=== PATIENT | female | born 1990 | race Caucasian/White ===

== ENCOUNTER 2018-03-25 23:05 | Emergency (ER) | payer SELFPAY ==
[~2018-03-25] VITALS: Ht 170.2 cm; Wt 86.2 kg
[~2018-03-25 23:05] MED LIST: LORazepam Inj 2mg/ml 1ml IV ONE
[2018-03-25 23:10] VITALS: BP 106/68
[2018-03-25] MEDS ORDERED: LORazepam Inj 2mg/ml 1ml ONE (23:52)
[2018-03-26 00:06] LABS: BASOPHILS % (AUTO) 0.5 % (0.0-2.0); EOSINOPHILS % (AUTO) 1.6 % (0.0-3.0); HEMATOCRIT 37.3 % (37.0-47.0); HEMOGLOBIN 12.6 G/DL (12.0-16.0); LYMPHOCYTES % (AUTO) 31.8 % (20.0-45.0); MEAN CORPUSCULAR VOLUME 82 FL (80-99); MONOCYTES % (AUTO) 6.5 % (1.0-10.0); NEUTROPHILS % (AUTO) 59.6 % (45.0-75.0); PLATELET COUNT 271 K/UL (150-450); RED BLOOD COUNT 4.53 M/UL (4.20-5.40); RED CELL DISTRIBUTION WIDTH 11.3 % (11.6-14.8); WHITE BLOOD COUNT 6.7 K/UL (4.8-10.8)
[2018-03-26 00:16] LABS: ANION GAP 9 mmol/L (5-15); BLOOD UREA NITROGEN 10 mg/dL (7-18); CARBON DIOXIDE 29 MMOL/L (21-32); CHLORIDE 102 MMOL/L (98-107); CREATININE 0.7 MG/DL (0.55-1.30); POTASSIUM 3.3 MMOL/L (3.5-5.1); SODIUM 140 MMOL/L (136-145)
[2018-03-26 00:20] LABS: ALANINE AMINOTRANSFERASE 29 U/L (12-78); ALBUMIN 3.7 G/DL (3.4-5.0); ALBUMIN/GLOBULIN RATIO 0.8 (1.0-2.7); ALKALINE PHOSPHATASE 81 U/L (46-116); ASPARTATE AMINO TRANSFERASE 20 U/L (15-37); BILIRUBIN,TOTAL 0.4 MG/DL (0.2-1.0); CREATINE KINASE 183 U/L (26-308)
[2018-03-26 01:00] VITALS: BP 108/70
[2018-03-26 02:37] LABS: APPEARANCE,URINE CLEAR; BILIRUBIN, URINE NEGATIVE (NEGATIVE); COLOR,URINE PALE YELLOW; GLUCOSE, URINE (UA) NEGATIVE (NEGATIVE); KETONES,URINE 3+ (NEGATIVE); LEUKOCYTE ESTERASE ,URINE 2+ (NEGATIVE); NITRITE,URINE NEGATIVE (NEGATIVE); PH,URINE 5 (4.5-8.0); PROTEIN,URINE NEGATIVE (NEGATIVE); UROBILINOGEN,URINE NORMAL MG/DL (0.0-1.0)
[2018-03-26 02:57] VITALS: BP 114/72
--- NOTE | 2018-03-26 03:51 | Emergency Room Report ---
History of Present Illness General Chief Complaint: Medication Refill Source: Patient, EMS Present Illness HPI Patient is brought in by EMS stating that she's off of her medications for bipolar disorder and needs medication immediately. She will not answer questions about suicidality. There is some question about whether she's been taking drugs recently. She refuses to answer questions. Allergies: Coded Allergies: No Known Allergies (Unverified , 03/25/18) Patient History Limited by: other - Patient refuses to answer Past Medical History: see triage record Social History: Reports: smoking, drug use Social History Narrative apparently on the streets Last Menstrual Period: unk Now: No Reviewed Nursing Documentation: PMH: Agreed; PSxH: Agreed Nursing Documentation-PMH Past Medical History: No History, Except For Review of Systems All Other Systems: limited Physical Exam Vital Signs Date Time Temp Pulse Resp B/P (MAP) Pulse Ox O2 Delivery O2 Flow Rate FiO2 03/25/18 22:53 97.1 83 16 104/61 100 Room Air 97.2 Sp02 EP Interpretation: reviewed, normal General Appearance: no apparent distress, other - dishevelled Head: normocephalic Eyes: bilateral eye PERRL, bilateral eye Scleral Injection ENT: moist mucus membranes Neck: supple Respiratory: lungs clear, normal breath sounds Cardiovascular #1: regular rate, rhythm Cardiovascular #2: 2+ radial (R) Gastrointestinal: normal inspection, normal bowel sounds, non tender, no mass, non-distended Genitourinary: no CVA tenderness Musculoskeletal: back normal, normal range of motion Neurologic: alert - agitated, motor strength/tone normal, DTRs symmetric, sensory intact, speech normal - pressured Psychiatric: other - agitated Skin: warm/dry, other - dishevelled Medical Decision Making Diagnostic Impression: Primary Impression: Substance abuse ER Course Patient presents with alleged noncompliance with psychiatric medications and agitation. Differential includes acute exacerbation of bipolar disorder, toxic ingestion, electrolyte abnormality local to infection amongst others. There is no evidence of any head trauma at this time in her lungs are clear. Evaluation will be with EKG and labs. The patient will be treated with IV hydration. In addition be due to her agitation she will be given a dose of Ativan. She'll be reevaluated to assess suicidality and also whether she is calm her after treatment. EKG shows no injury. Labs are significant for tox screen positive for cocaine and amphetamines. White count is normal, potassium slightly low but CMP is otherwise unremarkable. Patient is sleeping and will be reevaluated evaluated when drugs have been metabolized more. Discussed with patient in the morning. She denies suicidal ideation at this time. She denies other somatic complaints. She states that she has problems taking drugs and does not have a sponsor at this time. She lives with her family at home. She states that she's tired right now but will be okay to go home. Refuses to tell me what meds she usually take. Patient will be discharged from [facility] awake. Ambulatory. No SI or HI. Stable for discharge. Patient stable for outpatient observation and treatment. Laboratory Tests Test 03/25/18 02:20 03/25/18 23:30 Urine Color Pale yellow Urine Appearance Clear Urine pH 5 (4.5-8.0) Urine Specific [place] 1.020 (1.005-1.035) Urine Protein Negative (NEGATIVE) Urine Glucose (UA) Negative (NEGATIVE) Urine Ketones 3+ (NEGATIVE) H Urine Occult Blood Negative (NEGATIVE) Urine Nitrite Negative (NEGATIVE) Urine Bilirubin Negative (NEGATIVE) Urine Urobilinogen Normal MG/DL (0.0-1.0) Urine Leukocyte Esterase 2+ (NEGATIVE) H Urine RBC 0-2 /HPF (0 - 2) Urine WBC 2-4 /HPF (0 - 2) Urine Squamous Epithelial Cells Occasional /LPF Urine Bacteria Few /HPF (NONE) Urine Mucus Few /LPF (NONE/OCC) H Urine HCG, Qualitative Negative (NEGATIVE) Urine Opiates Screen Negative (NEGATIVE) Urine Barbiturates Screen Negative (NEGATIVE) Phencyclidine (PCP) Screen Negative (NEGATIVE) Urine Amphetamines Screen Positive (NEGATIVE) H Urine Benzodiazepines Screen Negative (NEGATIVE) Urine Cocaine Screen Positive (NEGATIVE) H Urine Marijuana (THC) Screen Negative (NEGATIVE) White Blood Count 6.7 K/UL (4.8-10.8) Red Blood Count 4.53 M/UL (4.20-5.40) Hemoglobin 12.6 G/DL (12.0-16.0) Hematocrit 37.3 % (37.0-47.0) Mean Corpuscular Volume 82 FL (80-99) Mean Corpuscular Hemoglobin 27.8 PG (27.0-31.0) Mean Corpuscular Hemoglobin Concent 33.8 G/DL (32.0-36.0) Red Cell Distribution Width 11.3 % (11.6-14.8) L Platelet Count 271 K/UL (150-450) Mean Platelet Volume 6.1 FL (6.5-10.1) L Neutrophils (%) (Auto) 59.6 % (45.0-75.0) Lymphocytes (%) (Auto) 31.8 % (20.0-45.0) Monocytes (%) (Auto) 6.5 % (1.0-10.0) Eosinophils (%) (Auto) 1.6 % (0.0-3.0) Basophils (%) (Auto) 0.5 % (0.0-2.0) Sodium Level 140 MMOL/L (136-145) Potassium Level 3.3 MMOL/L (3.5-5.1) L Chloride Level 102 MMOL/L (98-107) Carbon Dioxide Level 29 MMOL/L (21-32) Anion Gap 9 mmol/L (5-15) Blood Urea Nitrogen 10 mg/dL (7-18) Creatinine 0.7 MG/DL (0.55-1.30) Estimate Glomerular Filtration Rate > 60 mL/min (>60) Glucose Level 105 MG/DL (74-106) Calcium Level 9.0 MG/DL (8.5-10.1) Total Bilirubin 0.4 MG/DL (0.2-1.0) Aspartate Amino Transferase (AST) 20 U/L (15-37) Alanine Aminotransferase (ALT) 29 U/L (12-78) Alkaline Phosphatase 81 U/L (46-116) Total Creatine Kinase 183 U/L (26-308) Total Protein 8.1 G/DL (6.4-8.2) Albumin 3.7 G/DL (3.4-5.0) Globulin 4.4 g/dL Albumin/Globulin Ratio 0.8 (1.0-2.7) L Salicylates Level 2.3 ug/mL (2.8-20) L Acetaminophen Level < 2 MCG/ML (10-30) L Serum Alcohol < 3 mg/dL EKG Diagnostic Results Rate: normal Rhythm: NSR ST Segments: no acute changes Rhythm Strip Diag. Results EP Interpretation: yes Rhythm: NSR, no PVC's, no ectopy afeb, not tachycardic, nl bp, o2 sat 100 % Status: improved Disposition: HOME, SELF-CARE Condition: Improved Referrals: NOT CHOSEN IPA/,REFERRING (PCP) Thomas Ivan M.D. Mar 26, 2018 03:51
[2018-03-26 06:42] VITALS: BP 120/78
[2018-03-26 07:32] VITALS: BP 124/67
[2018-03-26 07:34] VITALS: BP 124/67
--- NOTE | 2018-03-29 15:23 | Cardiology Report ---
APPROVED REPORT EKG Measurement Heart [id number] Normal sinus rhythm Normal ECG
== END 2018-03-26 07:40 | disposition home or self-care (01) ==
LOC: EDBD 23:05 → EMR 23:52
DX: F15.10 Other stimulant abuse, uncomplicated (principal); F14.10 Cocaine abuse, uncomplicated; F31.9 Bipolar disorder, unspecified; F17.200 Nicotine dependence, unspecified, uncomplicated; Z91.14 Patient's other noncompliance with medication regimen; R45.1 Restlessness and agitation
CPT/HCPCS: 36415; 80053; 80307; 81003; 81025; 82550; 85025; 93005; 96360; 96361; 96374; 96375; 99283; G0480; 80329